=== PATIENT | female | born 1970 | race Two or more races ===

== ENCOUNTER 2023-12-26 07:56 | Emergency (ER) | payer OTHER ==
[2023-12-26 08:11] VITALS: BP 123/85; PULSE 72; RESP 18; TEMP 97.8; BMI 33.3
[2023-12-26] MEDS ORDERED: LIDOCAINE 4% PATCH TP ONE (09:39)
[2023-12-26] MEDS ORDERED: KETOROLAC TROMETHAMINE 30 MG/1 ML VIAL ONE (09:39)
[2023-12-26] MEDS: KETOROLAC TROMETHAMINE 30 MG/1 ML VIAL IM ONE (10:23)
[2023-12-26] MEDS: LIDOCAINE 5% TOPICAL PATCH TP ONE (10:23)
[2023-12-26] MEDS ORDERED: LIDOCAINE PATCH REMOVAL MC ONE (22:00)
== END 2023-12-26 12:30 | disposition home or self-care (01) ==
LOC: JER 07:56
PROC: 3E0133Z Introduction of Anti-inflammatory into Subcutaneous Tissue, Percutaneous Approach (ICD-10-PCS; principal; 2023-12-26)
DX: S09.90XA Unspecified injury of head, initial encounter (principal); M54.50 Low back pain, unspecified; M54.2 Cervicalgia; R42 Dizziness and giddiness; H53.8 Other visual disturbances; W20.8XXA Other cause of strike by thrown, projected or falling object, initial encounter
CPT/HCPCS: 70450-TC; 72100-TC-FY; 76512; 99284-25